=== PATIENT | male | born 1965 | race Caucasian/White ===

== ENCOUNTER 2023-11-23 06:12 | Day surgery (SDC) | payer MEDICARE, SELFPAY ==
[2023-11-23 07:50] VITALS: BP 165/98; BMI 47.3
[2023-11-23 08:20] LABS: Glucose - Point of Care 149 mg/dl (70-99)
[2023-11-23 09:28] VITALS: BP 129/80
[2023-11-23 09:31] VITALS: BP 154/88
[2023-11-23 09:45] VITALS: BP 179/95
[2023-11-23 09:53] VITALS: BP 172/87
== END 2023-11-23 10:05 | disposition home or self-care (01) ==
LOC: SDS 06:12
PROVIDERS: ATTENDING PHYSICIAN Internal Medicine
DX: Z12.11 Encounter for screening for malignant neoplasm of colon (principal); D12.2 Benign neoplasm of ascending colon; D12.3 Benign neoplasm of transverse colon; D12.5 Benign neoplasm of sigmoid colon; K63.5 Polyp of colon; K57.30 Diverticulosis of large intestine without perforation or abscess without bleeding; K64.9 Unspecified hemorrhoids; Z86.010 Personal history of colon polyps
CPT/HCPCS: 45385; 45380; 88305; 82962

== ENCOUNTER → 2024-01-16 13:29 | Outpatient (REF) | payer MEDICARE, SELFPAY | LOC: HWRAD 13:29 | PROVIDERS: ATTENDING PHYSICIAN Student in an Organized Health Care Education/Training Program; REFERRING PHYSICIAN Student in an Organized Health Care Education/Training Program | DX: Z09 Encounter for follow-up examination after completed treatment for conditions other than malignant neoplasm (principal); N17.9 Acute kidney failure, unspecified; N18.9 Chronic kidney disease, unspecified; R93.89 Abnormal findings on diagnostic imaging of other specified body structures; R91.8 Other nonspecific abnormal finding of lung field | CPT/HCPCS: 71250 ==

== ENCOUNTER → 2024-10-01 11:30 | Outpatient (REF) | payer MEDICARE, SELFPAY | LOC: RAD 11:30 | PROVIDERS: ATTENDING PHYSICIAN Nurse Practitioner Family | DX: J22 Unspecified acute lower respiratory infection (principal) | CPT/HCPCS: 71046 ==

== ENCOUNTER → 2025-03-21 14:21 | Outpatient (REF) | payer MEDICARE, SELFPAY | LOC: PAVMRI 14:21 | PROVIDERS: ATTENDING PHYSICIAN Family Medicine | DX: M75.81 Other shoulder lesions, right shoulder (principal); M25.511 Pain in right shoulder | CPT/HCPCS: 73221 ==

== ENCOUNTER → 2025-04-08 14:19 | Outpatient (REF) | payer MEDICARE, SELFPAY | LOC: RAD 14:19 | PROVIDERS: ATTENDING PHYSICIAN Family Medicine | DX: M75.81 Other shoulder lesions, right shoulder (principal); M25.511 Pain in right shoulder | CPT/HCPCS: 73030 ==